=== PATIENT | male | born 1950 | race Caucasian/White ===

== ENCOUNTER → 2016-05-09 | Outpatient (CLI) | payer OTHER, MEDICARE ==
--- NOTE | 2016-05-09 08:40 | DX ---
Abdomen, Single View 7:33 a.m. Indication: Follow up kidney stones. Comparison: None. Findings: No discernible calculi overlying the kidneys or course of the ureters. Moderate volume of r etained stool is present throughout the right and left side of the colon. No mass effect or dilated l oops of bowel. Degenerative disk disease is present at the lumbosacral junction. No bone lesions. Impression: 1. No discernible calculi. 2. Mild constipation.
== END ==
LOC: FIMAGING 07:17
PROVIDERS: ATTEND Urology
DX: K59.00 Constipation, unspecified (principal); E61.1 Iron deficiency; N40.0 Benign prostatic hyperplasia without lower urinary tract symptoms; R73.09 Other abnormal glucose; D64.9 Anemia, unspecified; R53.83 Other fatigue; E78.5 Hyperlipidemia, unspecified; E03.9 Hypothyroidism, unspecified; Z79.899 Other long term (current) drug therapy; R68.89 Other general symptoms and signs
CPT/HCPCS: G0103

== ENCOUNTER → 2017-03-10 | Outpatient (CLI) | payer OTHER, MEDICARE | LOC: FIMAGING 15:28 | PROVIDERS: ATTEND Urology | DX: Z87.442 Personal history of urinary calculi (principal) ==

== ENCOUNTER → 2018-02-23 | Outpatient (CLI) | payer OTHER, MEDICARE | LOC: FRFLAB 07:17 | PROVIDERS: ATTEND Urology | DX: N20.0 Calculus of kidney (principal) | CPT/HCPCS: G0103 ==